=== PATIENT | male | born 1980 | race Caucasian/White ===

== ENCOUNTER 2022-12-22 12:15 | Emergency (ER) | payer BC, OTHER, SELFPAY ==
[2022-12-22] VITALS (17 sets, daily range): BP systolic 90–144; BP diastolic 72–78; PULSE 49–66; RESP 9–23; TEMP 36.6; O2SAT 97–100; BMI 26.7
--- NOTE | 2022-12-22 12:56 | ECG_ITS ---
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
--- NOTE | 2022-12-22 12:56 | XR_ITS ---
The [address] [address] Patient Name: HODAN EUCEDA MRN: [id number] date: 1980 Sex: M Assigned Patient Location: ER Current Patient Location: ER Accession/Order Number: [id number] Exam Date: 12/22/2022 13:15 Report Date: 12/22/2022 14:01 At the request of: FIOR CHANCE Procedure: XR chest 1V EXAMINATION: XR chest 1V HISTORY: chest pain COMPARISON: No relevant comparison available. FINDINGS: LUNGS: No significant pulmonary parenchymal abnormalities. VASCULATURE: No increased pulmonary vasculature. PLEURA: No pneumothorax, effusion, or pleural thickening. CARDIAC: No cardiomegaly or cardiac silhouette abnormality. MEDIASTINUM: No visible mass or adenopathy. BONES: No fracture or visible bone lesion. OTHER: Negative. XR/XR chest 1V IMPRESSION: 1. No acute cardiopulmonary process. Electronically authenticated by: CASIMIRO ARROYO Date: 12/22/2022 14:01
--- NOTE | 2022-12-22 12:59 | ED_ITS ---
HPI - General Adult General Chief complaint: Chest Pain Stated complaint: POST SURGICAL COMPLICATIONS Time Seen by Provider: 12/22/22 12:25 Source: patient Mode of arrival: Wheelchair Limitations: no limitations History of Present Illness HPI narrative: Patient had lithotripsy yesterday at an outside hospital. At discharge he had general body aches and some throat soreness. He then developed pain in the chest and back in a band across my torso . He called the urologist and they told him to come to the ED to be evaluated for blood clot . Patient denies any arm or leg swelling or pain. No racing heart or shortness of breath. He has a mild cough. He is uncertain about any known ill exposures. He told me that he has reflux disease and stopped his meds yesterday for the surgery and wonders if the throat pain might be that. He also said that he was intubated for the surgery and when he was extubated he apparently vomited. No prior history of PE/DVT, CAD, PTX, asthma, or COPD. Non-smoker. Related Data Home Medications Medication Instructions Recorded Confirmed buspirone 10 mg tablet 10 mg PO TID 12/22/22 12/22/22 nicotine 21 mg/24 hr daily 1 patch transdermal Q24H 12/22/22 12/22/22 transdermal patch ondansetron HCl 4 mg tablet 4 mg PO Q8H PRN nausea and vomiting 12/22/22 12/22/22 oxybutynin chloride 10 mg 10 mg PO DAILY 12/22/22 12/22/22 tablet,extended release 24 hr oxycodone-acetaminophen 5 mg-325 1 tab PO Q6H PRN pain 12/22/22 12/22/22 mg tablet sulfamethoxazole 400 1 tab PO Q12H 12/22/22 12/22/22 mg-trimethoprim 80 mg tablet tamsulosin 0.4 mg capsule 0.4 mg PO Q24H 12/22/22 12/22/22 Allergies Allergy/AdvReac Type Severity Reaction Status Date / Time No Known Drug Allergies Allergy Verified 12/22/22 12:38 PFSH PFSH Social History Smoking status: Heavy tobacco smoker Exam Narrative Exam Narrative: Nurses notes and vital signs reviewed and patient is not hypoxic. afebrile General: Well-appearing and in no apparent distress. Skin: Warm, dry, no pallor noted. Head: Normocephalic, atraumatic. Neck: Supple, non-tender. no cervical lymphadenopathy. Eye: Pupils are equal, round and EOMI. No scleral icterus. Ears, Nose, Mouth, and Throat: TM are clear, no nasal mucosal hypertrophy. Oral mucosa is moist, mild posterior oropharynx erythema without exudate, uvula is mid-line Cardiovascular: Regular Rate and Rhythm without murmur, gallop or rub. Respiratory: No accessory muscle use or respiratory distress. Lungs are clear to auscultation, no wheezing, rales or rhonchi Chest Wall: no tenderness Musculoskeletal: normal ROM, no calf or popliteal tenderness, no lower extremity edema/swelling GI: Abdomen is soft, non-distended. Normal bowel sounds. LLQ tenderness to palpation. No rebound, guarding, or rigidity noted. Neurological: A&O x4. No cranial nerve dysfunction observed. No truncal ataxia. Moves all extremities. Sensation intact. Psychiatric: Cooperative and interactive. Normal mood and affect. Constitutional Vital Signs, click to edit/add: Last Vital Signs Temp 98 F 12/22/22 12:32 Pulse 52 L 12/22/22 14:40 Resp 10 L 12/22/22 14:40 BP 115/72 12/22/22 14:30 Pulse Ox 99 12/22/22 14:40 O2 Del Method Room Air 12/22/22 12:32 Course Vital Signs Vital signs: Vital Signs Temperature 98 F 12/22/22 12:32 Pulse Rate 63 12/22/22 12:32 Respiratory Rate 20 12/22/22 12:32 Blood Pressure 144/78 H 12/22/22 12:32 Pulse Oximetry 100 12/22/22 12:32 Oxygen Delivery Method Room Air 12/22/22 12:32 Temperature 98 F 12/22/22 12:32 Pulse Rate 52 L 12/22/22 14:40 Respiratory Rate 10 L 12/22/22 14:40 Blood Pressure 115/72 12/22/22 14:30 Pulse Oximetry 99 12/22/22 14:40 Oxygen Delivery Method Room Air 12/22/22 12:32 Medical Decision Making MDM Narrative Medical decision making narrative: 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 Blood drawn and sent for evaluation. chest x-ray obtained. CBC, CMP, troponin, strep screen and COVID negative/normal. Screening d-dimer was elevated so the patient was ordered to undergo CT angio chest. Chest CTA negative for PE. Patient informed of results, diagnosis and given reassurance. DIscharged home with recommendation to continue the meds prescribed by his urologist. Discussed reasons to return to the ED. Lab Data Lab results reviewed: Yes I reviewed the patient's lab results Labs: Lab Results 12/22/22 12/22/22 12/22/22 Range/Units 13:24 13:25 14:00 WBC 9.7 (4.0-11.0) 10^3/uL RBC 4.32 L (4.70-6.10) 10^6/uL Hgb 14.3 (14.0-18.0) g/dL Hct 41.0 L (42.0-54.0) % MCV 94.9 H (80.0-94.0) fL MCH 33.1 (25.9-34.0) pg MCHC 34.9 (29.9-35.2) g/dL RDW 13.2 (11.0-15.0) % Plt Count 163 (150-450) 10^3/uL MPV 10.7 (9.5-13.5) fL Neut % (Auto) 68.0 (43.0-75.0) % Lymph % (Auto) 24.2 (20.5-60.0) % Ponce % (Auto) 3.9 (1.7-12.0) % Eos % (Auto) 3.2 (0.9-7.0) % Baso % (Auto) 0.5 (0.2-2.0) % Neut # (Auto) 6.6 H (1.4-6.5) 10^3/uL Lymph # (Auto) 2.3 (1.2-3.8) 10^3/uL Ponce # (Auto) 0.4 (0.3-0.8) 10^3/uL Eos # (Auto) 0.3 (0.0-0.7) 10^3/uL Baso # (Auto) 0.1 (0.0-0.1) 10^3/uL Abs Immat Gran (auto) 0.02 (0.00-0.03) 10^3/uL Imm/Tot Granulo (auto) 0.2 (0.0-0.5) % D-Dimer 0.82 H* (<=0.59) mg/L FEU Sodium 136 (136-145) mmol/L Potassium 3.5 (3.5-5.1) mmol/L Chloride 101 (98-107) mmol/L Carbon Dioxide 27.0 (21.0-32.0) mmol/L Anion Gap 11.5 BUN 14.0 (7.0-18.0) mg/dL Creatinine 1.41 H (0.70-1.30) mg/dL Est GFR ( Amer) >60 (>=60) Est GFR (Non-Af Amer) 55 L (>=60) BUN/Creatinine Ratio 9.9 Glucose 102 (74-106) mg/dL Calcium 8.9 (8.5-10.1) mg/dL Total Bilirubin 0.3 (0.2-1.0) mg/dL AST 12 L (15-37) U/L ALT 65 H (16-63) U/L Alkaline Phosphatase 77 (46-116) U/L Troponin I High Sens 5.7 (4.0-76.1) pg/mL Total Protein 7.2 (6.4-8.2) g/dL Albumin 3.5 (3.4-5.0) g/dL Globulin 3.7 g/dL Albumin/Globulin Ratio 0.9 SARS-CoV-2 (PCR) Negative (NEGATIVE) Streptococcus Screen Negative Imaging Data Chest x-ray: Attestation: I have reviewed the pertinent imaging results. Radiologist's impression: Patient Name: HODAN EUCEDA MRN: [id number] date: 1980 Sex: M Assigned Patient Location: Current Patient Location: ER Accession/Order Number: [id number] Exam Date: 12/22/2022 13:15 Report Date: 12/22/2022 14:01 At the request of: FIOR CHANCE Procedure: XR chest 1V EXAMINATION: XR chest 1V HISTORY: chest pain COMPARISON: No relevant comparison available. FINDINGS: LUNGS: No significant pulmonary parenchymal abnormalities. VASCULATURE: No increased pulmonary vasculature. PLEURA: No pneumothorax, effusion, or pleural thickening. CARDIAC: No cardiomegaly or cardiac silhouette abnormality. MEDIASTINUM: No visible mass or adenopathy. BONES: No fracture or visible bone lesion. OTHER: Negative. IMPRESSION: 1. No acute cardiopulmonary process. Electronically authenticated by: CASIMIRO ARROYO Date: 12/22/2022 14:01 CT scan - chest: Radiologist's impression: Patient Name: HODAN EUCEDA MRN: [id number] date: 1980 Sex: M Assigned Patient Location: ER Current Patient Location: ER Accession/Order Number: [id number] Exam Date: 12/22/2022 14:45 Report Date: 12/22/2022 15:08 At the request of: FIOR CHANCE Procedure: CT angio chest EXAM: CT angio chest HISTORY: shortness of breath COMPARISON: None. TECHNIQUE: Following intravenous administration of 95 mL Omnipaque 350, axial soft tissue and lung windows of the chest were performed with coronal and sagittal reformats. 3-D MIPS reconstructions were created and reviewed. CT dose reduction technique was used including Automated Exposure Control. . Findings: The heart is nonenlarged. No pericardial effusion. The thoracic aorta is normal caliber. There is adequate opacification of the pulmonary arteries. No evidence of pulmonary embolism. The central airways are patent. Mild bilateral apical scarring. No pneumothorax. No pleural effusion. No focal consolidation. No enlarged mediastinal, hilar, axillary or supraclavicular lymph nodes. Small hiatal hernia. Partially visualized left sided nephroureteral stent. There is gas within the collecting system. No aggressive sclerotic or lytic osseous lesions. IMPRESSION: 1. No pulmonary embolism. 2. Partially visualized left sided nephroureteral stent. Gas within the left renal collecting system may relate to stent placement. Infection can have a similar appearance. Electronically authenticated by: CORNELIUS MILLER Date: 12/22/2022 15:08 ECG Data Attestation: ?I have reviewed the pertinent ECG results. Interpretation: EKG interpretation: Emergency Department physician interpretation. Normal sinus rhythm at 56bpm. Normal axis, normal intervals and no ST segment elevation or depression. Normal EKG Discharge Plan Discharge Chief Complaint: Chest Pain Clinical Impression: Back pain, Chest pain Patient Disposition: Home, Self-Care Time of Disposition Decision: 15:28 Prescriptions / Home Meds: No Action oxybutynin chloride 10 mg tablet extended release 24hr 10 mg PO DAILY oxycodone-acetaminophen 5-325 mg tablet 1 tab PO Q6H PRN (Reason: pain) ondansetron HCl 4 mg tablet 4 mg PO Q8H PRN (Reason: nausea and vomiting) nicotine 21 mg/24 hr patch 24 hour 1 patch transdermal Q24H buspirone 10 mg tablet 10 mg PO TID sulfamethoxazole-trimethoprim 400-80 mg tablet 1 tab PO Q12H tamsulosin 0.4 mg capsule 0.4 mg PO Q24H Instructions: Chest Pain (ED), Back Pain (ED) Stand Alone Forms: Portal Instructions Referrals: Physician,Non-Staff, MD [Primary Care Provider] - 1 week Discharge Date/Time: 12/22/22 15:41
[2022-12-22] MEDS: 0.9 % SODIUM CHLORIDE 1,000 ML 999 ML IV (13:22)
[2022-12-22] MEDS: KETOROLAC TROMETHAMINE 30 MG/ML VIAL IVP (13:22)
[2022-12-22 13:31] LABS: Basophils Absolute Auto 0.1 10^3/uL (0.0-0.1); Basophils Percent Auto 0.5 % (0.2-2.0); Eosinophils Absolute Auto 0.3 10^3/uL (0.0-0.7); Eosinophils Percent Auto 3.2 % (0.9-7.0); Hemoglobin 14.3 g/dL (14.0-18.0); Immature Granulocytes Abs Auto 0.02 10^3/uL (0.00-0.03); Immature Granulocytes Pct Auto 0.2 % (0.0-0.5); Lymphocytes Absolute Auto 2.3 10^3/uL (1.2-3.8); Lymphocytes Percent Auto 24.2 % (20.5-60.0); Mean Corpuscular HGB Conc 34.9 g/dL (29.9-35.2); Mean Corpuscular Hemoglobin 33.1 pg (25.9-34.0); Mean Corpuscular Volume 94.9 fL (80.0-94.0); Mean Platelet Volume 10.7 fL (9.5-13.5); Monocytes Absolute Auto 0.4 10^3/uL (0.3-0.8); Monocytes Percent Auto 3.9 % (1.7-12.0); Neutrophils Absolute Auto 6.6 10^3/uL (1.4-6.5); Platelet Count 163 10^3/uL (150-450); Red Blood Count 4.32 10^6/uL (4.70-6.10); Red Cell Distribution Width 13.2 % (11.0-15.0); White Blood Count 9.7 10^3/uL (4.0-11.0)
[2022-12-22 13:45] LABS: Alanine Aminotransferase 65 U/L (16-63); Albumin Globulin Ratio 0.9; Albumin Level 3.5 g/dL (3.4-5.0); Alkaline Phosphatase 77 U/L (46-116); Anion Gap 11.5; Aspartate Amino Transferase 12 U/L (15-37); BUN Creatinine Ratio 9.9; Bilirubin Total 0.3 mg/dL (0.2-1.0); Calcium 8.9 mg/dL (8.5-10.1); Chloride 101 mmol/L (98-107); Estimated GFR (African America >60 (>=60); Estimated GFR (Non-African Ame 55 (>=60); Globulin 3.7 g/dL; Glucose 102 mg/dL (74-106); Potassium 3.5 mmol/L (3.5-5.1); Sodium 136 mmol/L (136-145); Total Protein 7.2 g/dL (6.4-8.2)
[2022-12-22 13:48] LABS: Troponin I High Sensitivity 5.7 pg/mL (4.0-76.1)
[2022-12-22 14:08] LABS: D Dimer 0.82 mg/L FEU (<=0.59)
[2022-12-22 14:11] LABS: SARS-CoV-2 Ag NEGATIVE (NEGATIVE)
--- NOTE | 2022-12-22 14:18 | CT_ITS ---
The [address] [address] Patient Name: HODAN EUCEDA MRN: [id number] date: 1980 Sex: M Assigned Patient Location: ER Current Patient Location: ER Accession/Order Number: [id number] Exam Date: 12/22/2022 14:45 Report Date: 12/22/2022 15:08 At the request of: FIOR CHANCE Procedure: CT angio chest EXAM: CT angio chest HISTORY: shortness of breath COMPARISON: None. TECHNIQUE: Following intravenous administration of 95 mL Omnipaque 350, axial soft tissue and lung windows of the chest were performed with coronal and sagittal reformats. 3-D MIPS reconstructions were created and reviewed. CT dose reduction technique was used including Automated Exposure Control. . Findings: The heart is nonenlarged. No pericardial effusion. The thoracic aorta is normal caliber. There is adequate opacification of the pulmonary arteries. No evidence of pulmonary embolism. The central airways are patent. Mild bilateral apical scarring. No pneumothorax. No pleural effusion. No focal consolidation. No enlarged mediastinal, hilar, axillary or supraclavicular lymph nodes. Small hiatal hernia. Partially visualized left sided nephroureteral stent. There is gas within the collecting system. No aggressive sclerotic or lytic osseous lesions. CT/CT angio chest IMPRESSION: 1. No pulmonary embolism. 2. Partially visualized left sided nephroureteral stent. Gas within the left renal collecting system may relate to stent placement. Infection can have a similar appearance. Electronically authenticated by: CORNELIUS MILLER Date: 12/22/2022 15:08
[2022-12-22 14:59] LABS: Internal Control Within Normal Limits; Strep A Antigen Screen Negative
[2022-12-22 15:51] LABS: SARS-CoV-2 NAA NOT DETECTED (NOT DETECTE)
== END 2022-12-22 15:41 | disposition home or self-care (01) ==
PROVIDERS: Emergency Provider Emergency Medicine
DX: R07.9 Chest pain, unspecified (principal); M54.9 Dorsalgia, unspecified; Z79.899 Other long term (current) drug therapy; Z20.822 Contact with and (suspected) exposure to COVID-19; R79.1 Abnormal coagulation profile
CPT/HCPCS: 36415; 71045; 71275; 80053; 84484; 85025; 85378; 87070; 87635; 87811; 87880; 93005; 96374; 99285; Q9967